=== PATIENT | female | born 1995 | race African-American/Black ===

== ENCOUNTER 2024-07-04 23:34 | Inpatient (IN) | payer OTHER, SELFPAY ==
[2024-07-05] VITALS (186 sets, daily range): BP systolic 62–145; BP diastolic 17–110; PULSE 66–245; RESP 14–20; TEMP 36.7–37.2; O2SAT 79–100; BMI 31.6
--- OUTSIDE RECORDS SUMMARY | 2024-07-05 00:21 | XMS_ITS | Referral Summary ---
Author Organization [facility] Address [address] [place] [phone] Care Team Providers Care Legal Instructor Name Role Phone Audi Mckeon MD Primary Care Provider Allergies No known active allergies Medications No known medications Active Problems No known active problems Social History Tobacco Use Types Packs/Day Years Used Date Smoking Tobacco: Never Smokeless Tobacco: Never Tobacco Cessation:Counseling Given: Not Answered Alcohol Use Standard Drinks/Week Comments No 0 (1 standard drink = 0.6 oz pur e alcohol) Humiliation, Afraid, Rape, and Kick questionnair e Answer Date Recorded Within the last year, have y ou been afraid of your partner or ex-partner? No 01/10/2022 Within the last year, have y ou been humiliated or emotionally abused in other ways by your partner or ex-partner? No Within the last year, have y ou been kicked, hit, slapped, or otherwise physically hurt by your partner or ex-partner? No 01/10/2022 Within the last year, have y ou been raped or forced to have any kind of sexual activity by your partner or ex-partner? 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 Gender Identity Not on file Sexual Orientation Not on file Last Filed Vital Signs Vital Sign Reading Time Taken Comments Blood Pressure 120/86 01/10/2022 2:00 PM CDT patient states she was nervous during first BP Pulse 50 03/01/2012 10:46 AM CREATIVE WRITING PROFESSOR Temperature - - Respiratory Rate - - Oxygen Saturation 99% 03/01/2012 10: 46 AM CREATIVE WRITING PROFESSOR Inhaled Oxygen Concentration - - Weight 78.9 kg (174 lb) 01/10/2022 1:45 PM CDT Height 170.2 cm (5' 7 ) 01/10/2022 1:45 PM CDT Body Mass Index 27.25 01/10/2022 1:45 PM CDT Plan of Treatment Not on file Procedures Procedure Name Priority Date/Time Associated Diagnosis Comments PAP WITH REFLEX TO HIGH RISK HPV Routine 01/10/2022 2:54 PM CDT Screening for STD (sexually transmitted disease) Well woman exam from Last 3 Months or Most Recently Relevant to Health Maintenance Results * Pap with reflex to High Risk HPV (01/10/2022 2:54 PM CDT) CLINICAL INFORMATION: Marie Carlson Comment:None given LMP Marie Carlson Comment:A Previous Pap Marie Carlson Comment:NONE GIVEN Prev. Bx Marie Carlson Comment:NONE GIVEN SOURCE: Marie Carlson Comment:Cervix, Endocervix Pap, specimen adequacy Marie Carlson Comment: Satisfactory for evaluation. Endocervical/transformation zone component present. Age and/or menstrual status not provided HPV interp Marie Carlson Comment:Negative for intraep ithelial lesion or malignancy. COMMENTS Marie Carlson Comment: This Pap test has been evaluated with computer assisted technology. Fire Extinguisher Sprinkler Inspector Anish Velez Comment: MEF, CT(ASCP) CT screening location: [place] [address] [place] [address] Comment Marie Carlson Comment: EXPLANATORY NOTE: The Pap is a screening test for cervical cancer. It is not a diagnostic test and is subject to false negative and false positive results. It is most reliable when a satisfactory sample, regularly obtained, is submitted with relevant clinical findings and history, and when the Pap result is evaluated along with historic and current clinical information. Thin prep 01/10/2022 2:54 PM CDT 01/11/2022 8:35 AM CDT Sumi Guzman SCHOOL LIBRARY MEDIA PROGRAM DIRECTOR LAB CYTOLOGY ORDERABLES [facility] [address] [place] [address] from Last 3 Months or Most Recently Relevant to Health Maintenance Care Teams Legal Instructor Relationship Specialty Start Date End Date Audi Mckeon MD [address] [place] [address] PCP - General 05/12/16
--- OUTSIDE RECORDS SUMMARY | 2024-07-05 00:21 | XMS_ITS | Clinical Summary ---
Author Organization [facility] Address [address] [place] [address] Care Team Providers Care Veterinarian Name Role Phone Unavailable Primary Care Provider Unavailabl e Source Comments [facility],non-owned Affiliates and Associated Physician Practices is amultiple site organization consisting of ambulatory clinics and hospital sitesin [place], [place], [place] and [place]. This disclosure is being madepursuant to the Care Everywhere program and may not contain all information available regarding this patient. Last updated 17[employer] [facility] Allergies No known active allergies Medications * Be aware that medications may not be up to date on this document. Alwaysverify current medications with the patient. Medication Sig Dispensed Refills Start Date End Date Status methylPREDNISolone (MEDROL DOSEPAK) 4 MG tablet Take by mouth as directed 1 Each 05/27/2017 Active Immunizations Name Administration Dates Next Due MENINGOCOCCAL ACWY (MCV4P) VAC IM 11/19/2017 Social History Tobacco Use Types Packs/Day Years Used Date Smoking Tobacco: Never Sex and Gender Information Value Date Recorded Sex Assigned at Not on file Gender Identity Not on file Sexual Orientation Not on file Last Filed Vital Signs Vital Sign Reading Time Taken Comments Blood Pressure 122/72 05/27/2017 3:28 PM OUTDOOR STUDIES DIRECTOR Pulse 51 05/27/2017 3:28 PM OUTDOOR STUDIES DIRECTOR Temperature 36.7 C (98.1 F) 05/27/2017 3:28 PM OUTDOOR STUDIES DIRECTOR Respiratory Rate - - Oxygen Saturation 96% 05/27/2017 3:28 PM OUTDOOR STUDIES DIRECTOR Inhaled Oxygen Concentration - - Weight 77.1 kg (170 lb) 05/27/2017 3:28 PM OUTDOOR STUDIES DIRECTOR Height 170.2 cm (5' 7 ) 05/27/2017 3:28 PM OUTDOOR STUDIES DIRECTOR Body Mass Index 26.63 05/27/2017 3:28 PM OUTDOOR STUDIES DIRECTOR Plan of Treatment Health Maintenance Due Date Last Done Comments PAP SMEAR 1997 HIV SCREENING 2012 HPV VACCINE (1 - 3-dose series) 2012 HEPATITIS C SCREENING 07/31/2015 DTAP/TDAP/TD VACCINES (1 - Tdap) 2016 HEPATITIS B VACCINE (1 of 3 - 19+ 3-dose series) 2016 COVID-19 VACCINE (1 - 2023-2 5 season) 2023 DEPRESSION SCREENING 03/26/2024 INFLUENZA VACCINE (Season Ended) 2024 ZOSTER VACCINE (1 of 2) 08/05/2047 MENINGOCOCCAL GROUPS A/C/Y/W VACCINE Aged Out 11/19/2017 No longer eligible b ased on patient's age to complete this topic HIB VACCINE Aged Out No longer eligi ble based on patient's age to complete this topic MENINGOCOCCAL (Group B) VACC INE SHARED DECISION-MAKING Aged Out No longer eligibl e based on patient's age to complete this topic PNEUMOCOCCAL VACCINE Aged Out No long er eligible based on patient's age to complete this topic
--- OUTSIDE RECORDS SUMMARY | 2024-07-05 00:21 | XMS_ITS | Clinical Summary ---
Author Organization [facility] Address [address] [place] [phone] Care Team Providers Care Benefits Processor Name Role Phone Audi Mckeon MD Primary Care Provider Allergies No known active allergies Medications No known medications Active Problems No known active problems Family History Medical History Relation Name Comments Breast cancer Maternal Grandmother Relation Name Status Comments Maternal Grandmother Social History Tobacco Use Types Packs/Day Years [...] on file Legal Sex Female 1:50 PM BEEF SELECTOR Gender Identity Not on file Sexual Orientation Not on file Obstetrics History Para Term AB IAB SAB Ectopic Multiple Livin g Live Births 0 0 0 0 0 0 0 0 0 0 0 Last Filed Vital Signs Vital Sign Reading Time Taken Comments Blood Pressure 120/86 01/10/2022 2:00 PM CDT patient states she was nervous during first BP Pulse 50 03/01/2012 10:46 AM BEEF SELECTOR Temperature - - Respiratory Rate - - Oxygen Saturation 99% 03/01/2012 10: 46 AM BEEF SELECTOR Inhaled Oxygen Concentration - - Weight 78.9 kg (174 lb) 01/10/2022 1:45 PM CDT Height 170.2 cm (5' 7 ) 01/10/2022 1:45 PM CDT Body Mass Index 27.25 01/10/2022 1:45 PM CDT Plan of Treatment Health Maintenance Due Date Last Done Comments Hepatitis C Screening 1997 DTaP/Tdap/Td Vaccine (7 - Td or Tdap) 11/18/2018 11/18/2008, 07/29/2002, 01/03/1999, Additional history exists Cervical Cancer Screening 01/10/2023 01/10/2022 Depression Screening 01/10/2023 01/10/2022 Regular Well Visit/Exam 18-64 01/10/2023 01/10/2022 Covid-19 Vaccine (3 - 2023-2 5 season) 2023 09/02/2020, 08/12/2020 Influenza Vaccine (#1) 2023 Hepatitis B Screening Completed 08/10/1998 , 02/25/1998, 1997, Additional history exists Pneumococcal vaccine <65 Completed 04/19/2000 Varicella Vaccines Completed 10/24/2007, 08/10/1998 HPV Vaccines Completed 09/02/2014, 12/18/2011 Procedures Procedure Name Priority Date/Time Associated Diagnosis [...] has been evaluated with computer assisted technology. Bulldozer Engineer Que st Ernesto Carlson Comment: MEF, CT(ASCP) CT screening location: [facility] [address] [address] Comment Marie Carlson Comment: EXPLANATORY NOTE: The [...] 2:54 PM CDT 01/11/2022 8:35 AM CDT us Sumi Guzman SAWMILL MOULDER OPERATOR LAB CYTOLOGY ORDERABLES Fin al Result [facility] [place] [address] [place] [address] from Last 3 Months or Most Recently Relevant to Health Maintenance Care Teams Benefits Processor Relationship Specialty Start Date End Date Audi Mckeon MD [address] [place] [address] PCP - General 05/12/16
--- OUTSIDE RECORDS SUMMARY | 2024-07-05 00:22 | XMS_ITS | Clinical Summary ---
Author Organization [facility] Address [address] [facility] [address] Phone Care Team Providers Care Aquatic Physiotherapist Name Role Phone Provider, None Primary Care Provider Unavailabl e Allergies No known active allergies Medications acetaminophen-c odeine (TYLENOL WITH CODEINE) 120-12 MG/5ML Solution Take 10 mL by mouth every 6 hours as needed for Moderate or more severe pain. 120 mL 06/05/2020 Active predniSONE (DELTASONE) 50 MG Tablet Take 1 Tablet by mouth daily. 3 Tablet 06/06/2020 Active HYDROcodone-michael taminophen (NORCO) 5-325 MG Tablet Take 1 Tablet by mouth every 6 hours as needed for Moderate or more severe pain. 15 Tablet 07/23/2020 Active Social History Tobacco Use Types Packs/Day Years Used Date Smoking Tobacco: Never Smokeless Tobacco: Never Alcohol Use Standard Drinks/Week Comments Never 0 (1 standard drink = 0.6 oz pur e alcohol) AUDIT-C Answer Date Recorded Q1: How often do you have a drink containing alc ohol? Never 02/10/2020 Average Number of Drinks Not on file 020 Frequency of Binge Drinking Not on file 01/24 Comments No Sex and Gender Information Value Date Recorded Sex Assigned at Not on file Legal Sex Female 9:59 PM CDT Gender Identity Not on file Sexual Orientation Not on file Last Filed Vital Signs Vital Sign Reading Time Taken Comments Blood Pressure 99/66 07/10/2022 4:43 PM CDT Pulse 52 07/10/2022 4:43 PM CDT Temperature 35.9 C (96.7 F) 07/10/2022 4:43 PM CDT Respiratory Rate 18 07/10/2022 4:43 PM CDT Oxygen Saturation 99% 07/10/2022 4:43 PM CDT Inhaled Oxygen Concentration - - Weight 68 kg (150 lb) 07/10/2022 4:43 PM CDT Height 170.2 cm (5' 7 ) 07/10/2022 4:43 PM CDT Body Mass Index 23.49 07/10/2022 4:43 PM CDT Plan of Treatment Health Maintenance Due Date Last Done Comments Hepatitis C Virus (HCV) Screening 1997 Pap Smear 2018 Influenza Immunization (#1) 2023 SARS-COV-2 Immunization ( season) 2023 09/02/2020, 08/12/2020 Respiratory Syncytial Virus (RSV) Immunization (Adult) (1 - 1-dose 75+ series) 2072 Hepatitis B Immunization Completed 999, 02/25/1998, 1997, Additional history exists Pneumococcal Immunization Combined Aged Out 04/19/2000 No longer eligible based on patient's age to complete this topic DTaP/Tdap/Td Immunization Discontinued 2008, 07/29/2002, 01/03/1999, Additional history exists TdaP Immunization Completed 11/18/2008 Human Papillomavirus (HPV) Immunization Completed 09/02/2014, 12/18/2011 Meningococcal Immunization (ACWY) Completed 11/19/2017, 09/02/2014, 11/18/2008 Rotavirus Immunization Aged Out No lo nger eligible based on patient's age to complete this topic Care Teams Aquatic Physiotherapist Relationship Specialty Start Date End Date Provider, None [place] PCP - General 02/10/20
--- OUTSIDE RECORDS SUMMARY | 2024-07-05 00:22 | XMS_ITS | Data Portability ---
Author Organization [facility] Address [address] [place] [address] [place] [address] Assessment Encounter Date Assessment Date Assessment LastModified by Organization Details LastModified Time 06/17/2024 06/17/2024 Patient is _35__weeks . Discussed plan. [email or web address] Not available 06/17/2024 09:50:57 07/02/2024 07/02/2024 Patient is _38__weeks . Discussed plan. [email or web address] Not available 07/02/2024 18:00:17 Plan of Treatment Reminders Order Date Submit Date Provider Last Modified By Organization Details Last Modified Time Details Appointments OB ROUTINE 2024 08:45A Mike BEDOYA MD Not available Not available Not available NST 2024 09:00A M NST SCHEDULE Not available Not available Not available OB ROUTINE 2024 09:30A Mike Martin CNM Not available Not available Not available INDUCTION 2024 06:00A Mike Martin CNM Not available Not available Not available Lab streptoco ccus group B, culture, unspecifi ed specimen 2024 025 [facility] (Lab), [address], [place], [address], 06/20/2024 15:13:14 Referral None recorded. Procedures None recorded. Surgeries None recorded. Imaging US, obstetric , follow-up 2024 025 [email or web address] [address], [place], [address], 06/26/2024 16:03:42 US, obstetric , follow-up 2024 025 [email or web address] [address], [address], [place], [address], 05/26/2024 22:39:45 Medication Orders None recorded. Patient TargetsNo targets recorded. Patient InstructionsNo instructions recorded. Reason for Referral None Reported. Results Created Date Observation Date Name Description Value Unit Range Abnormal Flag Note LastModifiedBy Organization Detail LastModifiedTime 04/28/1904/28/2024 HBSAG /HCV/ HIV/R ND hepatitis C antibody Non-re active non-re active Antib odies to HCV Not Detec sumi, does not exclu de the possi bilit y of expos ure to HCV. Not Available [facility] (Lab) [address] [facility], [place], [address], 04/30/2024 15:38:24 04/28/19 25 04/28/2024 HBSAG /HCV/ HIV/R ND hepatitis B surface antigen Non-re active non-re active This assay was perfo rmed using [employer] ratio n reage nts and test kits. Value s obtai brittany with other assay metho ds or kits canno t be used inter estrada eably . Not Available [facility] (Lab) [address] [facility], [place], [address], 04/30/2024 15:38:24 04/28/19 25 04/28/2024 HBSAG /HCV/ HIV/R ND HIV antigen/anti body Nonrea ctive nonrea ctive HIV-1 antig en and HIV-1 /HIV- 2 antib odies were not detec sumi. No labor atory evide nce of HIV infec tion. Not Available [facility] (Lab) [address] [facility], [place], [address], 04/30/2024 15:38:24 04/28/19 25 04/28/2024 HBSAG /HCV/ HIV/R ND RPR screen Reacti ve nonrea ctive abnormal A react gayatri RPR resul t alone does not confi rm the prese nce of anti- Trepo nemal antib odies and shoul d be inter prete d with cauti on. Speci mens with a react gayatri RPR that are not confi rmed in-ho use by Syphi lis IgG antib candelaria testi ng will be sent out to a refer ence regino nino for confi rmati on. Not Available [facility] (Lab) [address] [facility], [place], [address], 04/30/2024 15:38:24 04/28/19 25 04/28/2024 HBSAG /HCV/ HIV/R ND RPR titer 1:16 . none high Not Available [facility] (Lab) [address] [facility], [place], [address], 04/30/2024 15:38:24 04/28/19 25 04/28/2024 SYPHI LIS ANTIB CANDELARIA, TREPO NEMA PALLI DUM PARTI DEBBY AGGLU TINAT ION, SERUM syphilis Ab by TP-Pa, S Positi ve negati ve abnormal Resul t sugge sts infec tion with T. palli dum at some time in the past, but does not disti nguis h betwe en treat ed and untre ated syphi lis as trepo nemal antib odies can remai n eleva sumi despi te prope r treat ment. RPR testi ng is recom roddy d to disti nguis h betwe en treat ed and untre ated syphi lis. For addit ional infor natividad n on inter preta tion of the syphi lis rever se algor ithm and resul ts, see: https :[email or web address] w.[facility] / it-mm files /Syph ilis_ Serol ogy_A onesimo thm.p df ----- ----- ----- ----A DDITI ONAL INFOR NATIVIDAD N---- ----- ----- ----- This test is inten ded to be used as a confi rmato ry test on sampl es that have been teste d by [facility] er syphi lis test. Test Perfo rmed by: [facility] [place] [address], [place] [address] Lab Direc tor: Desi Brown nn Ph.D. ; CLIA# [id number] Not Available [facility] (Lab) [address] [facility], [place], [address], 04/30/2024 15:38:24 06/18/19 25 06/17/2024 CULTU RE: GROUP B STREP SCREE N, REFLE X SUSCE PTIBI LITY result report SEE RESULT S BELOW Test: Cultu re: Group B Strep , Refle x Susce ptibi lity ([facility]/ [facility]/K H/VWH ) Speci men Sourc e: Vagin a/Rec dionicio Speci men Type: Vagin al/Re ctal Speci men Date: 2024 0852 Resul t Date: 2024 1410 Resul t Statu s: Final resul t Abnor mal: No Resul ting Lab: [facility] [address] [facility] [address] Tel: CULTU RE ----- ----- ----- --- No Group B strep isola sumi at 2 days (jorge ctive broth enhan cemen t) Not Available [facility] (Lab) [address] [facility], [place], [address], 06/20/2024 15:13:14 04/28/1904/28/2024 US, obste tric, follo w-up No observ ation record ed. [email or web address] [place] [address], [place], [address], 04/28/2024 16:26:42 04/28/19 25 04/28/2024 US, obste tric, follo w-up No observ ation record ed. [email or web address] [address], [place], [address], 04/28/2024 23:27:57 05/27/19 25 05/26/2024 US, obste tric, follo w-up No observ ation record ed. [email or web address] [facility] [address], [place], [address], 05/26/2024 17:23:17 05/27/19 25 05/26/2024 US, obste tric, follo w-up No observ ation record ed. [email or web address] [address], [place], [address], 05/26/2024 21:46:35 06/26/19 25 06/25/2024 US, obste tric, follo w-up No observ ation record ed. [email or web address] [facility] [address], [place], [address], 06/25/2024 18:29:29 06/26/19 25 06/25/2024 US, obste tric, follo w-up No observ ation record ed. [email or web address] [address], [place], [address], 06/26/2024 16:32:54 Result Notes None recorded. Problems Name Problem SNOMED Code Status Onset Date Resolution Date Notes Provider Name and Address Organization Details Recorded Time 04668904 Active 2023 Afsaneh lópez, [facility] 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 Informati on sent to [facility]. ELISABETH HART MD [address], [place], [address], [facility] 5 14:09:03 Problem Notes None recorded. Procedures Surgical History Date Name Laterality Status Provider Name and Address Organization Details Recorded Time 10/24/2022 Date of Last Pap Smear completed Lissy Salcido [facility] 01/30/2024 15:08:31 Imaging Results Imaging Date Name Status LastModified by Organiz ation Details LastModified Time 04/28/2024 US, obstetric, follow-up completed [email or web address] [facility] [address], [place], [address], 04/28/2024 16:26:42 04/28/2024 US, obstetric, follow-up completed [email or web address] [address], [place], [address], 04/28/2024 23:27:57 05/26/2024 US, obstetric, follow-up completed [email or web address] [facility] [address], [place], [address], 05/26/2024 17:23:17 05/26/2024 US, obstetric, follow-up completed [email or web address] [address], [place], [address], 05/26/2024 21:46:35 06/25/2024 US, obstetric, follow-up completed [email or web address] [facility] [address], [place], [address], 06/25/2024 18:29:29 06/25/2024 US, obstetric, follow-up completed [address], [place], [address], 06/26/2024 16:32:54 Procedure Notes None recorded. Medical Equipment None Reported. Allergies No known drug allergies Medications Name Sig Start Date Stop Date Status Note LastModified by Organization Details LastModified Time Bicillin L-A 2,400,000 unit/4 mL intramuscul ar syringe 2023 active Not Available Not Available Not Avai lable ondansetron 4 mg disintegrat ing tablet DISSOLVE 2 TABLETS ON THE TONGUE TWICE DAILY 06/17 completed Not Available Not Available Not Available Vitals Date Recorded Body height Body mass index (BMI) Body weight Systolic blood pressure Diastolic blood pressure Provider Name and Address Organization Details Last Updated DateTime 05/26/2024 170.18 cm 30.1 kg/m2 94255.74 g 118 mm[Hg] 79 mm[Hg] Lissy Salcido [facility] 5 12:15:24 Date Recorded Body weight Body mass index (BMI) Body height Systolic blood pressure Diastolic blood pressure Provider Name and Address Organization Details Last Updated DateTime 06/17/2024 82614.88 163 g 31.2 kg/m2 170.18 cm 114 mm[Hg] 76 mm[Hg] Afsaneh Waters [facility] 5 09:41:25 Date Recorded Body height Body mass index (BMI) Body weight Systolic blood pressure Diastolic blood pressure Provider Name and Address Organization Details Last Updated DateTime 06/25/2024 170.18 cm 31.6 kg/m2 13252.66 g 114 mm[Hg] 75 mm[Hg] JUAN J Valerio [facility] 5 16:24:25 Date Recorded Body height Body mass index (BMI) Body weight Systolic blood pressure Diastolic blood pressure Provider Name and Address Organization Details Last Updated DateTime 07/02/2024 170.18 cm 32.1 kg/m2 25764.44 g 113 mm[Hg] 74 mm[Hg] Afsaneh Waters [facility] 5 17:37:21 Social History Question Answer Notes LastModified by Organizat ion Details LastModified Time Tobacco Smoking Status Never Smoker Afsaneh Waters null, [facility] 01/04/2024 15:18:12 Do You Have An Advance Directive? No [email or web address] Information not available 06/17/2024 What Is Your Level Of Alcohol Consumption? None [email or web address] Information not available 12/19/2023 If You Are , What Was Your Level Of Alcohol Consumption Prior To ? Occasional [email or web address] Information not available 01/04/2024 How Many Years Have You Consumed Alcohol? 5 [email or web address] Information not available 01/04/2024 Are You Blind Or Do You Have Difficulty Seeing? No [email or web address] Information not available 12/19/2023 What Is Your Level Of Caffeine Consumption? None [email or web address] Information not available 07/02/2024 How Much Tobacco Do You Chew? None [email or web address] Information not available 12/19/2023 In The 14 Days Before Symptom Onset, Have You Had Close Contact With A Laboratory-confir med COVID-19 While That Case Was Ill? No [email or web address] Information not available 12/19/2023 In The 14 Days Before Symptom Onset, Have You Had Close Contact With A Person Who Is Under Investigation For COVID-19 While That Person Was Ill? No [email or web address] Information not available 12/19/2023 Have You Been To An Area Known To Be High Risk For COVID-19? No Information not available 12/19/2023 Are You Deaf Or Do You Have Serious Difficulty Hearing? No [email or web address] Information not available 12/19/2023 What Type Of Diet Are You Following? REGULAR [email or web address] Information not available 12/19/2023 What Is The Highest Grade Or Level Of School You Have Completed Or The Highest Degree You Have Received? 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 No Information not available 12/19/2023 Do You Use Protection During Sex? No [email or web address] Information not available 07/02/2024 Do You Use Your Seat Belt Or Car Seat Routinely? Yes Information not available 12/19/2023 Do You Have Smoke And Carbon Monoxide Detectors In Your Home? No [email or web address] Information not available 12/19/2023 How Much Tobacco Do You Smoke? No [email or web address] Information not available 12/19/2023 Do You Feel Stressed (tense, Restless, Nervous, Or Anxious, Or Unable To Sleep At Night)? [id number] [email or web address] Information not available 12/19/2023 Do You Use Any Illicit Or Recreational Drugs? No [email or web address] Information not available 12/19/2023 Do You Use Sunscreen Routinely? No [email or web address] Information not available 12/19/2023 Has Tobacco Cessation Counseling Been Provided? No [email or web address] Information not available 01/04/2024 Have You Used IV Drugs? No [email or web address] Information not available 12/19/2023 Do You Or Have You Ever Used Any Other Forms Of Tobacco Or Nicotine? No [email or web address] Information not available 01/04/2024 Sex: Unknown Functional Status Question Answer Note LastModified by Organizat ion Details LastModified Time Do you have difficulty walking or climbing stairs? No Information not available 01/04/2024 Are you able to walk? YESWOREST [email or web address] Information not available 04/02/2024 Are you able to care for yourself? Yes [email or web address] Information not available 01/04/2024 Do you have difficulty dressing or bathing? No [email or web address] Information not available 01/04/2024 What is your exercise level? Occasional [email or web address] Information not available 01/30/2024 Mental Status None recorded. Family History Relationship Description Onset Age of this Age Resolved Age Notes LastModified by Organization Details LastModified Time Unspecified Relation Family history unknown [email or web address] Not available 2023 12:19:10 Medical History Condition Response Allergies (Food, seasonal, environmental ) N Other N Breast Cancer N Drug/Latex Allergies/Reactions N Blood Transfusion N Dermatologic Disorders N Lung Disease N Defects or Inherited Disease N Breast Problem N Gestational Diabetes N Hematologic disorders N Anesthesia Complications N History of STI N Deep Vein Thrombosis N Polycystic ovary syndrome N Anxiety Disorder N Autoimmune disease N Arthritis N Infertility N Polyps N Acid Reflux (GERD) N History of abnormal pap N Cancer N Stroke N Varicosities N Neurologic/Epilepsy N Endometriosis N High Cholesterol N Headaches N Fibromyalgia N Kidney Disease N Heart Problems N Kidney or Bladder Problems N Thyroid Problems N GI Problems N Eating Disorder N Anemia N Art (IVF or FET) N Psychiatric Illness N Ovarian Cancer N Diabetes N Pulmonary (TB, Asthma) N Hepatitis/Liver Disease N No Past Medical History Y Eczema N Urinary Tract Infection N Abuse/Domestic Violence N Asthma N Trauma/Violence N Depression/ depression N Heart Disease N Pre-Eclampsia N Hypertension N Osteoporosis N Thrombophilias N Gynecological History Statement/Question Response Abnormal Pap N Date of Last Mammogram Date of LMP 10/10/2023 On BCP's at Conception? N N Was last menstrual period normal Y STIs/STDs N HPV Vaccine N Duration of Flow (days) 5 Current Control Method Date of Last Colonoscopy Frequency of Cycle (Q days) 28 Sexually Active? Y BCPs Date of DEXA bone scan Age of first menstrual cycle 14 Date of Last Pap Smear 10/24/2022 Sexual Problems? N LMP Unknown N Obstetrics History GPAL:G 1 P 0 0 0 0 Type Value Living 0 Total 1 Past Encounters Encounter ID Performer Location Encounter Start Date Encounter Closed Date Diagnosis/Indication Diagnosis SNOMED-CT Code Diagnosis ICD10 Code Diagnosis Note [id number] [facility] [address],[place] [address] 12/19/2023 11:41:32 12/19/2023 12:24:38 [id number] ELISABETH HART MD [facility] [address],[place] [address] 12/19/2023 11:48:31 12/19/2023 15:00:12 Nausea and vomiting 77828945 R11.2 - will trial zofran PRN test positive 018573264 Z32.01 1. Exam today within normal limits.2. Ultrasound today confirms GA and viability. EDC . GC/Clamydi a testing done: will f/u as indicated. 4. ACOG guidelines and plan of care for reviewed with patient. All questions answered.5 . Return to office at 12 weeks for new OB visit6. Will need new OB labs at next visit.7. Genetic screening: desires. [id number] [facility] [address],[place] [address] 01/01/2024 09:34:21 01/01/2024 10:02:53 screening 759506727 Z36.82 Z3A.11 [id number] Ne Martin CNM [facility] [address],[place] [address] 01/04/2024 15:02:54 01/04/2024 16:00:10 Gestation period, 12 weeks 61492937 Z3A.12 Routine an tenatal care 467992482 Z34.90 [id number] ELISABETH HART MD [facility] [address],[place] [address] 01/30/2024 14:54:15 01/30/2024 16:06:26 Latent syphilis 445480240 A53.0 - s/p PCN x2, next appointmen t 02/04 Gestation period, 16 weeks 49947988 Z3A.16 [id number] [facility] [address],[place] [address] 02/26/2024 14:45:12 02/26/2024 16:21:46 screening for malformation 517474211 Z36.3 Z3A.19 [id number] ELISABETH HART MD [facility] [address],[place] [address] 02/26/2024 14:46:52 02/26/2024 16:47:33 Excessive growth affecting management of mother 59349669 O36.60X0 - 93% at 20 weeks- repeat at 24 weeks Gestation period, 19 weeks 88979627 Z3A.19 - continue PNV Latent syphilis 19301275 0 A53.0 - s/p PCN x3, repeat with GCT [id number] [facility] [address],[place] [address] 04/28/2024 11:20:59 04/28/2024 12:12:44 Pre-existing maternal disease complicating 6268738790 6106 O99.891 Z3A.28 [id number] ELISABETH HART MD [facility] [address],[place] [address] 04/02/2024 13:55:06 04/09/2024 03:22:23 Latent syphilis 746908466 A53.0 - s/p PCN x3, repeat with GCT Gestation period, 25 weeks 44186661 Z3A.25 - continue PNV [id number] ELISABETH HART MD [facility] [address],[place] [address] 04/28/2024 11:29:08 04/28/2024 12:42:04 Venereal disease screening 771812064 Z11.3 - partner seropositi ve for HSV1 after questionab le lesion vs folliculit is- discussed no indication for blood testing for HSV, patient to call if lesions present Latent syphilis 05036440 0 A53.0 - s/p PCN x3- RPR titer 1:64 down to 1:32 at 24 week visit Transverse lie 82603109 O32.2XX9 - repeat at 32 weeks Gestation period, 28 weeks 29597106 Z3A.28 - continue PNV [id number] ELISABETH HART MD [facility] [address],[place] [address] 05/12/2024 09:57:52 05/12/2024 14:23:13 Latent syphilis 033273607 A53.0 - s/p PCN x3- RPR titer 1:64 down to 1:32 at 24 week visit further downtrend to 1:16 at 28 week visit Transverse lie 81555070 O32.2XX9 - repeat at 32 weeks Gestation period, 30 weeks 49338620 Z3A.30 - continue PNV [id number] Rose Foster [facility] [address],[place] [address] 05/26/2024 11:28:56 05/26/2024 12:16:10 Malpresentation of fetus 47372497 O32.9XX0 Z3A.32 [id number] ELISABETH HART MD [facility] [address],[place] [address] 05/26/2024 11:29:19 05/26/2024 12:45:19 Latent syphilis 418283164 A53.0 - s/p PCN x3- RPR titer 1:64 down to 1:32 at 24 week visit further downtrend to 1:16 at 28 week visit Gestation period, 32 weeks 7391599 Z3A.32 - continue PNV- discussed preadmissi on [id number] Ne Martin CNM [facility] [address] [place] [address] 06/17/2024 09:35:57 06/17/2024 10:00:21 screening 743799649 Z36.85 Gestation period, 35 weeks 15649237 Z3A.35 continue vitamin [id number] Kylie Gross [facility] [address],[place] [address] 06/25/2024 15:32:20 06/25/2024 16:23:57 Pre-existing maternal disease complicating 1647203791 6106 O99.891 Z03.74 Z3A.37 [id number] ELISABETH HART MD [facility] [address] [address] 06/25/2024 15:33:29 06/25/2024 17:09:28 Latent syphilis 976902116 A53.0 - s/p PCN x3- RPR titer 1:64 down to 1:32 at 24 week visit further downtrend to 1:16 at 28 week visit Gestation period, 37 weeks 68849023 Z3A.37 [id number] Ne Martin CNM [facility] [address],[facility] [place] [address] 07/02/2024 16:56:53 07/03/2024 06:53:07 Health Concerns Section Related Observation LastModified by Organization Detai ls LastModified Time None Recorded Concern Status LastModified by Organization Details LastModified Time None Recorded Advance Directives Directive N: Payers Encounter Date Sequence Insurance Name Policy Number Policy Cohn Covered Member ID Cohn Member ID Guarantor Name 05/26/2024 1 [facility] ON OR AFTER 09/23/20 (MEDICAID REPLACEMENT - HMO) Tara Michel [id number] Tara Michel 06/17/2024 1 [facility] ON OR AFTER 09/23/20 (MEDICAID REPLACEMENT - HMO) Tara Michel [id number] Tara Michel 06/25/2024 1 [facility] ON OR AFTER 09/23/20 (MEDICAID REPLACEMENT - HMO) Tara Michel [id number] Tara Michel 06/25/2024 1 [facility] ON OR AFTER 09/23/20 (MEDICAID REPLACEMENT - HMO) Tara Michel [id number] Tara Michel 07/02/2024 1 [facility] ON OR AFTER 09/23/20 (MEDICAID REPLACEMENT - HMO) Tara Michel [id number] Tara Michel OBGyn Episode Ob Episode Information Episode Created Date Number of Fetuses Patient Bloodtype Patient rh Status Prepregnancy Weight lbs Domestic Partner Domestic Partner Phone Father Name Dial Mounter Status 01/04/20 24 1 O Positive Daniel Morfin OPEN Fetus Data First Name Last Name Admitted to NICU Weight (g) Sex Living Outcome Pediatric Complications Fetus ID Race Codes Race Delivery Type [id number] Problems Problem Notes Problem Name Start Date End Date Resolution Snomed Code Not e Latent syphilis 01/11/2024 [id number] RPR 1:64 titer decreased to 1:16 titer at 28 weeks; 3rd injection 02/04. Information sent to [facility]. Maximino Calculation Initial Maximino Date Initial Exam Date Initial Exam Provider Initial Ultrasound Date Last Menstrual Period Date Ultra Sound Weeks Gestation 07/16/2024 12/19/2023 12/19/2023 10/10/2023 10 Eighteen To Twenty Week Maximino Update Ultra Sound Date Fundal Height At Umbil Quickening Date Ultra Sound Latest Weeks Gestation Final Maximino Confirmed By Final Maximino Confirmed Date Final Maximino Date Ultra Sound Latest Days Gestation 0 0 Pre- Flowsheet Flowsheet Date 01/04/2024 [place] Score Blood Edema Fundus Height Fundus Units Glucose Ketones Leukocytes Nitrite Labor Signs Protein Cervic Dilation Cervic Effacement Cervic Station neg none none trace Type Weight in lbs Pre/Post Dialysis Refused Weight 173.070966797075 BP Diastolic BP Location Tested BP Systolic BP Type 71 102 Fetus Heart Rate Present Fetus Movement A Yes Comments Patient states that is havin g some cramping and nausea. education and precautions, reviewed US, begin routine care, ok for flu and covid if desires f/u 4 weeks Flowsheet Date 01/30/2024 [place]ley Score Blood Edema Fundus Height Fundus Units Glucose Ketones Leukocytes Nitrite Labor Signs Protein Cervic Dilation Cervic Effacement Cervic Station neg none none trace Type Weight in lbs Pre/Post Dialysis Refused 170.991320174653 BP Diastolic BP Location Tested BP Systolic BP Type 77 L arm 107 sitting Fetus Heart Rate Present Fetus Movement A Yes Comments Doing well, no issues. Start ing to feel flutters. Completed 2nd injection of PCN for latent syphilis. Has next injection scheduled for next week. Discussed anatomy US for next visit. RTC 4 weeks. Flowsheet Date 02/26/2024 [place]ley Score Blood Edema Fundus Height Fundus Units Glucose Ketones Leukocytes Nitrite Labor Signs Protein Cervic Dilation Cervic Effacement Cervic Station Type Weight in lbs Pre/Post Dialysis Refused BP Diastolic BP Location Tested BP Systolic BP Type Fetus Heart Rate Present Fetus Movement Comments Flowsheet Date 02/26/2024 [place]ley Score Blood Edema Fundus Height Fundus Units Glucose Ketones Leukocytes Nitrite Labor Signs Protein Cervic Dilation Cervic Effacement Cervic Station neg none Type Weight in lbs Pre/Post Dialysis Refused Weight 174.814982122510 BP Diastolic BP Location Tested BP Systolic BP Type 77 L arm 113 sitting Fetus Heart Rate Present A Present Fetus Movement A Yes Comments Doing well, good movem ent. No cramping or bleeding. Anatomy complete and normal, EFW 93%. Will do 1h GCT at 24 weeks. Repeat growth US at next visit. RTC 4 weeks. Flowsheet Date 04/02/2024 [place] Score Blood Edema Fundus Height Fundus Units Glucose Ketones Leukocytes Nitrite Labor Signs Protein Cervic Dilation Cervic Effacement Cervic Station neg none Type Weight in lbs Pre/Post Dialysis Refused Weight 184.070912930302 BP Diastolic BP Location Tested BP Systolic BP Type 85 L arm 120 sitting Fetus Heart Rate Present A 140 Fetus Movement A Yes Comments Doing well, good movem ent. No cramping or bleeding. GCT and labs today for macrosomic fetus. Will repeat RPR as well s/p treatment. Repeat growth US next visit to monitor weight. RTC 4 weeks. Flowsheet Date 04/28/2024 Ridley Score Blood Edema Fundus Height Fundus Units Glucose Ketones Leukocytes Nitrite Labor Signs Protein Cervic Dilation Cervic Effacement Cervic Station Type Weight in lbs Pre/Post Dialysis Refused BP Diastolic BP Location Tested BP Systolic BP Type Fetus Heart Rate Present Fetus Movement Comments Flowsheet Date 04/28/2024 Ridley Score Blood Edema Fundus Height Fundus Units Glucose Ketones Leukocytes Nitrite Labor Signs Protein Cervic Dilation Cervic Effacement Cervic Station neg none Type Weight in lbs Pre/Post Dialysis Refused Weight 184.807484732555 BP Diastolic BP Location Tested BP Systolic BP Type 83 L arm 113 sitting Fetus Heart Rate Present A Present Fetus Movement A Yes Comments Good movement. No cram ping or bleeding. Growth US EFW 70%, transverse lie. WIll repeat in 4 weeks. Passed GCT, labs wnl. RPR titer downtrending. Would like repeat STD testing, boyfriend was diagnosed seropositive HSV-1. Discussed do not recommend serum testing for HSV, if patient has outbreak, can come in for swab of lesion. Recommend safe sex or avoidance of physical contact if any lesions present. Patient voices understanding. Discussed Tdap vaccine. RTC 2 weeks. Flowsheet Date 05/12/2024 Ridley Score Blood Edema Fundus Height Fundus Units Glucose Ketones Leukocytes Nitrite Labor Signs Protein Cervic Dilation Cervic Effacement Cervic Station neg none Type Weight in lbs Pre/Post Dialysis Refused 190.624828348820 BP Diastolic BP Location Tested BP Systolic BP Type 76 L arm 106 sitting Fetus Heart Rate Present A 140 Fetus Movement A Yes Comments Patient c/o of Gianfranco Garza . No bleeding. Good movement. STD testing negative at last appointment, RPR titer downtrending as expected. Discussed repeat growth/presentation US for next visit. RTC 2 weeks. Flowsheet Date 05/26/2024 Ridley Score Blood Edema Fundus Height Fundus Units Glucose Ketones Leukocytes Nitrite Labor Signs Protein Cervic Dilation Cervic Effacement Cervic Station Type Weight in lbs Pre/Post Dialysis Refused BP Diastolic BP Location Tested BP Systolic BP Type Fetus Heart Rate Present Fetus Movement Comments Flowsheet Date 05/26/2024 Ridley Score Blood Edema Fundus Height Fundus Units Glucose Ketones Leukocytes Nitrite Labor Signs Protein Cervic Dilation Cervic Effacement Cervic Station neg trace Type Weight in lbs Pre/Post Dialysis Refused Weight 192.542412600246 BP Diastolic BP Location Tested BP Systolic BP Type 79 L arm 118 sitting Fetus Heart Rate Present A Present Fetus Movement A Yes Comments Patient c/o [place] Garza an d slight swelling in feet. Good movement. Had some pink spotting that has resolved. Tdap scheduled. Discussed preadmission. EFW 30%, JINNY wnl. Vertex! Discussed EIL vs spontaneous labor, will discuss further at next visit. RTC 2 weeks. Flowsheet Date 06/17/2024 Ridley Score Blood Edema Fundus Height Fundus Units Glucose Ketones Leukocytes Nitrite Labor Signs Protein Cervic Dilation Cervic Effacement Cervic Station neg none 38 cm 1cm 70% -2 Type Weight in lbs Pre/Post Dialysis Refused 199.238528603692 BP Diastolic BP Location Tested BP Systolic BP Type 76 114 Fetus Heart Rate Present A 146 Present Fetus Movement A Yes Comments Patient is having some pelvi c pain. preadmit on sunday, +FM, precautions and education f/u one week Flowsheet Date 06/25/2024 Ridley Score Blood Edema Fundus Height Fundus Units Glucose Ketones Leukocytes Nitrite Labor Signs Protein Cervic Dilation Cervic Effacement Cervic Station Type Weight in lbs Pre/Post Dialysis Refused BP Diastolic BP Location Tested BP Systolic BP Type Fetus Heart Rate Present Fetus Movement Comments Flowsheet Date 06/25/2024 Ridley Score Blood Edema Fundus Height Fundus Units Glucose Ketones Leukocytes Nitrite Labor Signs Protein Cervic Dilation Cervic Effacement Cervic Station trace Type Weight in lbs Pre/Post Dialysis Refused Weight 202.249892461372 BP Diastolic BP Location Tested BP Systolic BP Type 75 L arm 114 sitting Fetus Heart Rate Present A 131 Fetus Movement A Yes Comments pt has a little swelling in leg and feet. FM great. No cramping or bleeding. Would like to await spontaneous labor. EFW 35%, vertex. Discussed labor precautions. RTC 1 week. Flowsheet Date 07/02/2024 Ridley Score Blood Edema Fundus Height Fundus Units Glucose Ketones Leukocytes Nitrite Labor Signs Protein Cervic Dilation Cervic Effacement Cervic Station neg trace 37 cm Type Weight in lbs Pre/Post Dialysis Refused Weight 205.758153336834 BP Diastolic BP Location Tested BP Systolic BP Type 74 113 Fetus Heart Rate Present A 132 Present Fetus Movement A Yes Comments Patient is having some contr actions and swelling. reviewed precautions, consider IOL pt desired 07/18 will talk to fob and let us know if she wants to schedule, +FM, precautions and education Menstrual History Last Menstrual Date Menses Monthly On Bcp Conception Prior Menses Frequency Hcg Plus Date Menarche Onset Age 0710/10/2023 Delivery Information Delivery Date Delivery Type Labor Anesthesia Weeks Gestation Incision Type Labor Labor Length Hrs Delivered By Post Complications Tubal Sterilization Discharge Date Comments Discharge Information Feeding Method Contraceptive Method Maternal HG B and HCT Levels
--- NOTE | 2024-07-05 00:29 | LDADM ---
This patient, Tara Michel, was admitted to Labor/Delivery/Recovery 105 on 07/04/24 at 23:34. Plans for labor, pain management and were discussed with patient. Patient/family oriented to hospital policies and general routines including ID bracelet, bed and alarms, visiting hours, pain management, procedures, bathroom and other care routines, personal items, smoking policy, room service/diet and guest tray routines, security routines, and visiting hours. Patient/Family are encouraged to report perceived risks to care and to ask questions if they do not understand what they are told or what they should do. See OBIX for further documentation.
[2024-07-05 00:32] LABS: Basophils Percent Auto 0.2 % (0.2-1.2); Eosinophils Absolute Auto 0.1 K/mm3 (0-0.3); Eosinophils Percent Auto 0.5 % (0-4.4); Hematocrit 34.7 % (37.0-47.0); Hemoglobin 11.2 g/dL (12.0-15.0); Immature Granulocyte Percent A 0.7 % (0-0.5); Lymphocytes Absolute Auto 2.84 K/mm3 (0.9-3.2); Lymphocytes Percent Auto 18.6 % (18.3-44.2); Mean Corpuscular HGB Conc 32.3 g/dl (32-36); Mean Corpuscular Hemoglobin 27.7 pg (26-34); Mean Corpuscular Volume 85.7 fl (80-100); Mean Platelet Volume 11.5 fl (7.4-10.4); Monocytes Absolute Auto 0.9 K/mm3 (0.1-0.6); Monocytes Percent Auto 5.8 % (2.6-8.5); Neutrophils Absolute Auto 11.4 K/mm3 (1.3-6.7); Neutrophils Percent Auto 74.2 % (45.5-73.1); Platelet Count Result 224 k/mm3 (150-375); Red Blood Count 4.05 M/mm3 (4.2-5.4); Red Cell Distribution Width 14.6 % (11.5-14.5); White Blood Count 15.3 K/mm3 (4.5-10.0)
[2024-07-05 01:15] LABS: Syphilis IgG/IgM Antibody Reactive (Negative)
[2024-07-05 01:26] LABS: HIV 1/2 Ab P24 Ag Result Negative (Negative)
[2024-07-05] MEDS: LACTATED RINGERS 1,000 ML 125 ML IV CONT ×2 (02:03→03:04)
--- NOTE | 2024-07-05 02:22 | P.PNAN_ITS ---
Anes - Eval Pre Procedure Procedure: Labor Epidural Date/Time: 07/05/24 02:22 Surgeon: Vitor Preop Diagnosis: Labor Pain Pre Op Diagnosis: Contractions Patient Data Age: 28 Gender: F Height: 1.7 m Weight: 91.8 kg Last Vital Signs Pulse 119 H 07/05/24 02:17 BP 104/78 07/05/24 02:17 Pulse Ox 100 07/05/24 02:17 O2 Del Method Room Air 07/05/24 00:26 Allergies Allergy/AdvReac Type Severity Reaction Status Date / Time No Known Allergies Allergy Verified 06/21/24 13:59 Home Medications ?Medication ?Instructions ?Recorded ?Confirmed ?Type vit no.95-ferrous 1 tablet PO DAILY 06/21/24 06/21/24 History fumarate 28 mg-folic acid 800 mcg tablet () Laboratory Tests 07/05/24 07/05/24 00:25 00:26 WBC 15.3 H K/mm3 (4.5-10.0) RBC 4.05 L M/mm3 (4.2-5.4) Hgb 11.2 L g/dL (12.0-15.0) Hct 34.7 L % (37.0-47.0) MCV 85.7 fl (80-100) MCH 27.7 pg (26-34) MCHC 32.3 g/dl (32-36) RDW 14.6 H % (11.5-14.5) Plt Count 224 k/mm3 (150-375) MPV 11.5 H fl (7.4-10.4) Immature Gran % (Auto) 0.7 H % (0-0.5) Neut % (Auto) 74.2 H % (45.5-73.1) Lymph % (Auto) 18.6 % (18.3-44.2) [place] % (Auto) 5.8 % (2.6-8.5) Eos % (Auto) 0.5 % (0-4.4) Baso % (Auto) 0.2 % (0.2-1.2) Lymph # (Auto) 2.84 K/mm3 (0.9-3.2) [place] # (Auto) 0.9 H K/mm3 (0.1-0.6) Eos # (Auto) 0.1 K/mm3 (0-0.3) Baso # (Auto) 0.0 K/mm3 (0.0-0.1) Abs Immat Gran (auto) 0.10 H K/mm3 (0.00-0.031) Absolute Neuts (auto) 11.4 H K/mm3 (1.3-6.7) Absolute Nucleated RBC 0.000 K/mm3 (0.0-0.012) Nucleated RBC % 0.0 % (0.0-0.2) Syphilis IgG/IgM Ab Reactive A (Negative) RPR Titer Add Testing Pending RPR w/Rflx to Titer Pending T.pallidum Ab (FTA-ABS) Pending HIV 1&2 Ab/P24 Ag 4thGn Negative (Negative) Blood Type O Positive Antibody Screen Negative : gestational age (, SANGEETHA 07/16/24) HCG: positive Patient hx anesthesia problems: none Family hx anesthesia problems: none Results Review: All pre-operative results and documents have been reviewed as part of the pre- operative evaluation. [facility] Family History Family History Other Unknown family medical history Social History Social History Smoking status: Former smoker Second hand tobacco smoke exposure: No Substance use: never Do You Feel Safe in your Home?: Yes Lack of Transportation: No Lack of Food: Never True Current Housing: I Have Housing Concerned About Future Housing: No Difficulty Paying Gas/Electric Bills: No Difficulty Paying for Meds: No Currently Unemployed: No Education: High School Diploma/GED Difficulty w/ Childcare or Family Care: No Spiritual care concerns: No Exam Day of Procedure 07/05/24 02:22 Patient weight: overweight Heart: regular rate and rhythm Lungs: normal air movement Airway: Mallampati scale class II Neurological: alert and oriented
[2024-07-05] MEDS: PHENYLEPHRINE 1,000 MCG/10 ML SYRINGE 100 MCG IV PUSH ×3 (03:09→05:45)
[2024-07-05] MEDS: ONDANSETRON INJ 4 MG/2 ML VIAL IV PUSH (05:32)
--- NOTE | 2024-07-05 08:19 | WPDHPUPDATE1 ---
History and Physical Update Update Date/Time: 07/05/24 08:19 28-year-old term primary now in the 2nd stage of labor. Artificial rupture membranes was performed. Clear fluid. Reassuring status. History and Physical has been reviewed, including an updated exam of the patient. There are NO changes in the patient's condition. Risks, benefits, and alternatives have been discussed and questions answered. Patient agrees to proceed with procedure.
--- NOTE | 2024-07-05 10:52 | PM.OBPRVD ---
OB - Vaginal Delivery Note Procedure Delivery date: 07/05/24 Delivery augmentation: Rupture of Membranes Delivery monitor: External FHT and External Uterine Episiotomy description: None Laceration Description: Periurethral Delivery repair: vicryl Quantitative Blood Loss (ml): 124 Anesthesia type: Epidural Disposition: Floor Complications: No immediate complications
[2024-07-05] MEDS: OXYTOCIN 30 UNITS/NS 500 ML 30 UNITS/500 ML BAG 999 UNITS IV CONT (11:00)
[2024-07-05] MEDS: OXYTOCIN 30 UNITS/NS 500 ML 30 UNITS/500 ML BAG 125 UNITS IV CONT (11:44)
--- NOTE | 2024-07-05 14:37 | PC.NURSE ---
Patient transferred to post room #290 via wheelchair. Support person present. Oriented to unit, room, information board, rooming in, admission packet and security measures. Patient verbalizes understanding.
[2024-07-05] MEDS: PENICILLIN G BENZATHINE 2,400,000 UNITS/4 ML SYRINGE 2400000 UNITS IM (17:11)
[2024-07-05] MEDS: WITCH HAZEL 40 PADS 1 PAD TOPICAL (17:16)
[2024-07-05] MEDS: BENZOCAINE 20% AER SPR (*SP) 56 GM CAN 1 SPRAY TOPICAL (17:17)
--- NOTE | 2024-07-05 17:30 | PC.NURSE ---
Introductions were made, then consulted with patient to assess needs related to . Mother led the conversation with her?plans to feed?her infant and the?experience so far. Encouraged understanding of the benefits of skin to skin, stimulating with massage touch, changing positions to encourage wakefulness, how to watch for early feeding cues, responsive feeding, feeding on demand (aiming for 8-12 times in 24 hours, about every 2-3 hours), milk production, building/maintaining a milk supply, duration of feeding, signs of adequate intake/output and how to record on the feeding sheet. Mother works well with her infant with encouragement and education. Reviewed positioning and ear, shoulder, hip alignment, supporting the breast to facilitate a deep latch, asymmetrical latch (off-center), leading with the chin with a big, open, wide gape and body close to mother. latched optimally to the [right] breast in [football] position. Education given to the mother of how to visualize the suckling, swallows and how to listen for drinking at the breast (the ka sound). Infant was [able] to maintain latch without pain to mother protecting the nipple with optimal positioning and latching. Reviewed comfort measures of healing with a warm, wet washcloth to rinse breast, then leave open to air-dry, good handwashing when or touching the breast/nipples to prevent infection. Mother voiced understanding of skin to skin, stimulating with massage touch, responsive feedings, hand expressed colostrum, talking to to encourage if it has been 2 -2.5 hours since the start of the last , to call if infant does not latch, or if there is discomfort with .Parents voiced understanding of information, demonstrated learning and will call if there is a request for assistance. Reported to the Primary RN.
[2024-07-06] MEDS: ACETAMINOPHEN 325 MG TABLET 650 MG PO ×2 (02:17→18:36)
[2024-07-06] MEDS: IBUPROFEN 600 MG TABLET PO ×3 (02:17→18:36)
[2024-07-06 05:08] LABS: Hematocrit 32.7 % (37.0-47.0); Hemoglobin 9.9 g/dL (12.0-15.0)
[2024-07-06 05:13] VITALS: BP 105/52; PULSE 71; RESP 14; TEMP 36.8; O2SAT 100
[2024-07-06 08:00] VITALS: BP 115/82; PULSE 62; RESP 18; TEMP 36.4; O2SAT 100
[2024-07-06] MEDS: DOCUSATE SODIUM 100 MG CAPSULE PO ×2 (08:29→16:19)
[2024-07-06] MEDS: MULTIVIT/MIN/PREN/FOL AC/IRON TABLET 1 TAB PO (08:29)
[2024-07-06] MEDS: POLYSACCHARIDE IRON COMPLEX 150 MG CAPSULE PO ×2 (08:30→16:18)
--- NOTE | 2024-07-06 08:37 | P.PNOB_ITS ---
OB - PN: Subj Subjective Date/time seen: 07/06/24 08:37 Patient comments: no complaints, pain well controlled, incisional pain, tolerating diet and flatus present OB - PN: Obj Data Labs 07/06/24 05:00 Labs: Laboratory Results - last 24 hr 07/06/24 05:00 Hgb 9.9 L Hct 32.7 L OB - PN A/P Plan day: 1 Plan: routine care Comments: No problems, routine care Time Spent With Patient Time: Total time spent is greater than 50% in coordination of care (as documented) at patient's floor/unit and/or counseling patient: Exam 2 Const: General: comfortable, no acute distress and alert Resp: Effort & Inspection: normal respiratory effort Auscultation: no crackles, no rales and no rhonchi Cardio: Rate: regular rate Heart sounds: no click, no murmurs and no rubs GI: Inspection: non-distended GI Palp: No Tenderness to palpation present (GI) Auscultation: normal bowel sounds Other: Incision - CDI Extrem: General: normal to inspection, no pedal edema and no calf tenderness
--- NOTE | 2024-07-06 16:03 | WPDANLDPN2 ---
Anes-Prog Note L&D Date/Time: 07/06/24 16:03 Comfortable throughout: labor and delivery Neuraxial method: epidural Epidural/Spinal procedure site: clean & non-tender Neuro status: Neuro function grossly intact. Cardiovascular status: normal Respiratory status: normal Airway patency: baseline Mental status: baseline Post-Op hydration status: normal Vital Signs: Last Vital Signs Temp 36.4 C 07/06/24 08:00 Pulse 62 07/06/24 08:00 Resp 18 07/06/24 08:00 BP 115/82 07/06/24 08:00 Pulse Ox 100 07/06/24 08:00 O2 Del Method Room Air 07/05/24 00:26 Pain score (VAS): 3 I/O: Intake & Output 07/06/24 07/06/24 07/06/24 07:59 15:59 23:59 Intake Total 540 Balance 540 Post-procedural complaints: none Patient feedback: Patient satisfied with anesthetic care.
[2024-07-06 20:45] VITALS: BP 124/77; PULSE 64; RESP 16; TEMP 36.8; O2SAT 100
[2024-07-06 23:45] VITALS: BP 116/81; PULSE 72; RESP 14; TEMP 37.1; O2SAT 100
[2024-07-07] MEDS: ACETAMINOPHEN 325 MG TABLET 650 MG PO ×2 (00:29→09:57)
[2024-07-07] MEDS: IBUPROFEN 600 MG TABLET PO ×2 (00:30→09:55)
[2024-07-07 08:00] VITALS: PULSE 64; RESP 18; O2SAT 100
--- NOTE | 2024-07-07 08:17 | P.PNOB_ITS ---
OB - PN: Subj Subjective Date/time seen: 07/07/24 08:17 Patient comments: no complaints, pain well controlled and tolerating diet OB - PN: Obj Data Labs 07/06/24 05:00 OB - PN A/P Plan day: 2 Plan: routine care and discharge home Time Spent With Patient Time: Total time spent is greater than 50% in coordination of care (as documented) at patient's floor/unit and/or counseling patient: Exam 2 Const: General: comfortable and no acute distress Resp: Effort & Inspection: normal respiratory effort Auscultation: no rales, no rhonchi and no wheezes Cardio: Rate: regular rate Heart sounds: no click, no murmurs and no rubs GI: GI Palp: Yes Soft to palpation and No Tenderness to palpation present (GI) Auscultation: normal bowel sounds Extrem: General: normal to inspection, no pedal edema and no calf tenderness
--- NOTE | 2024-07-07 08:18 | PM.OBDSVD ---
DS: Admitting Diagnosis Discharge Date 07/07/2024 Admitting Diagnosis Term DS: Discharge Diagnosis Discharge Diagnosis (1) Term delivered: Code(s): O80 - Encounter for full-term uncomplicated delivery Status: Acute OB - DS: Summary OB Procedures : None OB Procedures Intrapartum: Spontaneous Vag Delivery OB Procedures: : None Peripartum Data Laceration Description: Periurethral Episiotomy description: None Time Spent with Patient Time attestation: Total time spent providing and/or coordinating discharge services: Discharge Plan Discharge Discharging Clinician: Benji Benson Patient Disposition: Home Activity: pelvic rest Diet: regular Patient Instructions: Antibiotic Form Patient Language: Estonian Stand Alone Forms: General Discharge Information Follow-up/Referrals: Benji Benson MD [Physician] - Discharge Medications: Continued PNV cmb#95-ferrous fumarate-FA [] 28 mg iron- 800 mcg tablet 1 tablet PO DAILY Date of admission: 07/04/24 23:34 Primary Care Provider: PHYSICIAN,SANDBLAST OR SHOTBLAST EQUIPMENT TENDER Admitting Provider: Maik Adler Attending physician on admission: Maik Adler Condition: Stable
[2024-07-07 08:20] VITALS: BP 125/86; PULSE 64; RESP 18; TEMP 36.5; O2SAT 100
--- NOTE | 2024-07-07 09:30 | PC.NURSE ---
Met with mother to attempt to latch baby to the left breast. He has only been nursing on the right breast so far. Her right areola is reddened and she has some soreness and latch on tenderness. Baby was just circumcised this morning and is very sleepy and hard to awaken. It took us 10 minutes to get him to wake enough to latch. Since he was so sleepy we were unable to get a latch on the left but he did feed for a few minutes on the right. Mom was leaking milk prior to latching. Mom has very large breasts and short nipples. Her areola tends to wrinkle when we make a bite for baby. Mother shown how to make her hand a U to compress the breast parallel to baby's mouth. Also discussed use of a washcloth under the breast to help support and lift the breast. Father present and very supportive. We will attempt again in about an hour or anytime baby shows feeding cues. Mom agrees to call out when ready. RN updated.
[2024-07-07] MEDS: POLYSACCHARIDE IRON COMPLEX 150 MG CAPSULE PO (09:54)
[2024-07-07] MEDS: DOCUSATE SODIUM 100 MG CAPSULE PO (09:54)
[2024-07-07] MEDS: MULTIVIT/MIN/PREN/FOL AC/IRON TABLET 1 TAB PO (09:54)
--- NOTE | 2024-07-07 11:30 | PC.NURSE ---
Consulted with mother concerning needs and she shared her ability to independently latch infant. She has some latch on tenderness that dissipates. Mother is feeding appropriately for growth of and understands stimulating to eat if needed. Observed and assisted mother to latch baby to the left breast in cradle hold. He is able to latch well with a small 'bite'. Reviewed with mom that it will take practice for her and baby to get the hang of latching on the more challenging side but that with consistency they will get it. Infant has had appropriate feedings in the last 24 hours meets the outcomes for weight, output, blood sugar and jaundice at this time. Reinforced understanding of milk production, transition of milk, signs of adequate intake, transition of stool, prevention/relief of engorgement, plugged ducts, mastitis, responsive watching for feeding cues, the different methods of stimulating infant to breastfeed 1-3 hours after the start of the last feeding, community resources ([facility] referral faxed to [facility]), and when to call a provider using the resource of the feeding sheet along with the mom and baby guide. Patient has a Mom Cozy breast pump and we briefly reviewed how to use and when to use (if not latching to left breast). Mother voiced understanding of the information shared, is confident to continue effectively her infant at home, when to call for assistance, denies any additional assistance or education at this time. Reported to the Primary RN.
[2024-07-08 08:34] LABS: Reference Lab Test Name RPR TITER
[2024-07-08 08:36] LABS: Reference Lab Test Name Treponemal IgG/IgM
[2024-07-09 11:25] VITALS: BP 120/91; PULSE 98; RESP 18; TEMP 36.8; O2SAT 99
== END 2024-07-07 15:30 | disposition home or self-care (01) | DRG 560 ==
LOC: ANHOB2 07-07 08:19 → ANHLDR 07-08 10:48
PROVIDERS: Admitting Provider Obstetrics & Gynecology; Visit Provider Obstetrics & Gynecology
DX: O32.6XX0 Maternal care for compound presentation, not applicable or unspecified (principal); O71.82 Other specified trauma to perineum and vulva; O98.12 Syphilis complicating childbirth; A53.9 Syphilis, unspecified; O69.81X0 Labor and delivery complicated by cord around neck, without compression, not applicable or unspecified; Z3A.38 38 weeks gestation of pregnancy; Z37.0 Single live birth
CPT/HCPCS: 36415; 85014; 85018; 85025; 86593; 86703; 86780; 86850; 86900; 86901; A9270; G0432; J0561; J2371; J2405; J2590; J2795; J7120

== ENCOUNTER 2024-09-10 09:57 | Outpatient (CLI) | payer OTHER, SELFPAY ==
--- NOTE | 2024-09-10 10:00 | PC.NURSE ---
In- 1000 Out- 1100 Reason for visit: decreased milk supply History: Tara had her first baby via vaginal delivery on 07/05/24. There were no complications. She has been exclusively since delivery. She does pump regularly and has given bottles of expressed milk in the past but is currently only feeding at breast. While discussing her routine, she explains that she had stopped during the middle of the night and would give a bottle instead. A member of her family who has a lot of experience told her that she should resume night feeding to increase her supply. She says that this did make a noticeable difference. She tries to get plenty of fluids and protein. She has great support from family and significant other. She will be returning to work soon and wants to be sure she has plenty of milk for baby while they are apart. She states that she was an overproducer initially and was pumping 15oz at each session. She is now pumping 3-7oz per session after she has breastfed for 20 minutes. Encouraged mom that this is a great volume and that she definitely doesn't have low milk production. It just seemed to her that there was an alarming decrease in the volume she was pumping. She does admit that she gets caught up with watching videos on social media and compares her experience with what other people are doing. Patient is supported and commended that she is doing such an awesome job and that baby is getting plenty of breast milk at each feeding. She was uncertain how much baby would need to take from the bottle at each feeding when they are apart and the weighted feed has given her a good idea of how much baby will need. History: Daniel is a healthy and robust 2 month old. He is alert and bright eyed. He and mom appear to have a very close leyva and respond well to each other. He had an appointment with his teacher kindergarten last week and there were no concerns. He sleeps for about 2 hours between feedings, wakes when he is hungry, and is able to end the feeding independently when sated. Observations:Mom positions baby in a cross cradle hold on the right, which she states is his preferred side. She uses football on the left side. Daniel latches and feeds without difficulty. Mom hears occasional smacking at the breast but it resolves when she adjusts for a deeper latch. Mom declines nipple pain. She has occasional 'aching' on the outer portion of the right breast and was worried there may be a plugged duct. Area was palpated and found to be soft and free from any lumps. There are no hard or red areas. She denies pain with palpation. She is encouraged to use heat and gentle massage to the area for discomfort. Baby was a great nurser and was satisfied after feeding. Mom applied her pump after feeding so that we could observe her flange fit. She measures at a 16mm nipple diameter and per the [place] guidelines, it is recommended she use a 19mm flange. A set of 19mm flanges was provided to her (extra sizes from [employer] at no cost). She will try this size and/or the 21mm that comes in her pump kit. She is advised to use whatever feels and works best for her. She does say that her areola is red and puffy after pumping due to it being pulled into the flange. weight: 6 lb 10 oz Lowest weight: 6 lb 4 oz Last weight: 11 lb 4 oz (at teacher kindergarten last week) Pre-feed weight: 5360g Post-feed weight: 5447g Transferred volume: 87ml Plan of Care: Tara and Daniel are a great nursing pair. They can continue feeding on demand as they have been. Mom feels better knowing that baby ate about 3 oz at the breast and that when she pumps after feedings, she is getting an appropriate, expected amount. Mom wants to continue to stock up on pumped milk because she will be returning to work soon. She will try the smaller size flange to see if she has an increase in the volume she pumps. Handout on low supply/increasing supply given. She was provided with tips on pumping at work. She is encouraged to reach out to the office for any other questions or concerns. Follow up plans: The team will follow up with Tara on Sunday via phone. A copy of the consultation note will be faxed to Dr. Holt's office for their records.
--- OUTSIDE RECORDS SUMMARY | 2024-09-10 11:14 | XMS_ITS | Data Portability ---
Author Organization [facility] [place] Address [address] [place] [address] [place] [address] Assessment Encounter Date Assessment Date Assessment LastModified by Organization Details LastModified Time 06/17/2024 06/17/2024 Patient is _35__weeks . Discussed plan. Not available 06/17/2024 09:50:57 07/02/2024 07/02/2024 Patient is _38__weeks . Discussed plan. Not available 07/02/2024 18:00:17 Plan of Treatment Reminders Order Date Submit Date Provider Last Modified By Organization Details Last Modified Time Details Appointments [facility] 2024 10:45A M ELISABETH HART MD Not available Not available Not available Lab streptoco ccus group B, culture, unspecifi ed specimen 2024 025 [facility] (Lab), [address], [place], [address], 06/20/2024 15:13:14 Referral None recorded. Procedures None recorded. Surgeries None recorded. Imaging US, obstetric , follow-up 2024 025 [email or web address] [place], [address], [address], , [address], 06/26/2024 16:03:42 Medication Orders None recorded. Patient TargetsNo targets recorded. Patient InstructionsNo instructions recorded. Reason for Referral None Reported. Results Created Date Observation Date Name Description Value Unit Range Abnormal Flag Note LastModifiedBy Organization Detail LastModifiedTime 06/18/1906/1706/17/2024 CULTU RE: GROUP B STREP SCREE N, [...] t Abnor mal: No Resul ting Lab: [facility] [address] [facility] [address] Tel: CULTU RE ----- ----- ----- --- No Group B strep isola sumi at 2 days (jorge ctive broth enhan cemen t) Not Available [facility] (Lab) [address], [place], [address], 06/20/2024 15:13:14 05/27/19 25 05/26/2024 US, obste tric, follo w-up No observ ation record ed. [email or web address] [place] [address] [facility], , [address], 05/26/2024 17:23:17 05/27/19 25 05/26/2024 US, obste tric, follo w-up No observ ation record ed. [email or web address] [address], [place], [address], 05/26/2024 21:46:35 06/26/19 25 06/25/2024 US, obste tric, follo w-up No observ ation record ed. [email or web address] [place] [address], , [address], 06/25/2024 18:29:29 06/26/19 25 06/25/2024 US, obste tric, follo w-up No observ ation record ed. [address], [place], [address], 06/26/2024 16:32:54 Result Notes None recorded. Problems Name Problem SNOMED Code Status Onset Date Resolution Date Notes Provider Name and Address Organization Details Recorded Time Pregnanc y 11462340 Completed 202307/21/2024 Afsaneh lópez [facility] 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 Informat ion sent [facility] [place] [facility] 1st injectio n 01/22/24 Shari Porfirio lópez [facility] 17:20:57 Problem Notes None recorded. Procedures Surgical History Date Name Laterality Status Provider Name and Address Organization Details Recorded Time 10/24/2022 Date of Last Pap Smear completed Lissy Salcido [facility] 01/30/2024 15:08:31 Imaging Results None recorded. Procedure Notes None recorded. Medical Equipment None [...] Available Not Available Vitals Date Recorded Body weight Body mass index (BMI) Body height Systolic blood pressure Diastolic blood pressure Provider Name and Address Organization Details Last Updated DateTime 06/17/2024 01502.88 163 g 31.2 kg/m2 170.18 cm 114 mm[Hg] 76 mm[Hg] Afsaneh Waters [facility] 09:41:25 Date Recorded Body height Body mass index (BMI) Body weight Systolic blood pressure Diastolic blood pressure Provider Name and Address Organization Details Last Updated DateTime 06/25/2024 170.18 cm 31.6 kg/m2 49427.66 g 114 mm[Hg] 75 mm[Hg] JUAN J Valerio [facility] 5 16:24:25 Date Recorded Body height Body mass index (BMI) Body weight Systolic blood pressure Diastolic blood pressure Provider Name and Address Organization Details Last Updated DateTime 07/02/2024 170.18 cm 32.1 kg/m2 94413.44 g 113 mm[Hg] 74 mm[Hg] Afsaneh Waters [facility] 5 17:37:21 Date Recorded Body height Body mass index (BMI) Body weight Systolic blood pressure Diastolic blood pressure Provider Name and Address Organization Details Last Updated DateTime 08/08/2024 170.18 cm 29 kg/m2 59902.59 g 114 mm[Hg] 80 mm[Hg] Afsaneh Waters [facility] 5 12:08:04 Social History Question Answer Notes LastModified by Organizat ion Details LastModified Time Tobacco Smoking Status Never Smoker Afsaneh Waters [facility] 01/04/2024 15:18:12 Do You Have An Advance Directive? No [email or web address] Information n ot available 06/17/2024 If You Are , What Was Your Level Of Alcohol Consumption Prior To ? Occasional [email or web address] Information not available 01/04/2024 How Many Years Have You Consumed Alcohol? 5 [email or web address] Information not available 01/04/2024 Are You Blind Or Do You Have Difficulty Seeing? No [email or web address] Information n ot available 12/19/2023 What Is Your Level Of Caffeine Consumption? None [email or web address] Information not available 07/02/2024 How Much Tobacco Do You Chew? None Information not available 12/19/2023 In The 14 Days Before Symptom Onset, Have You Had Close Contact With A Laboratory-confirm ed COVID-19 While That Case Was Ill? No Information n ot available 12/19/2023 In The 14 Days Before Symptom Onset, Have You Had Close Contact With A Person Who Is Under Investigation For COVID-19 While That Person Was Ill? No [email or web address] Information not available 12/19/2023 Have You Been To An Area Known To Be High Risk For COVID-19? No [email or web address] Information not available 12/19/2023 Are You Deaf Or Do You Have Serious Difficulty Hearing? No [email or web address] Information not available 12/19/2023 What Type Of Diet Are You Following? REGULAR [email or web address] Information n ot available 12/19/2023 What Is The Highest Grade Or Level Of School You Have Completed Or The Highest Degree You Have Received? [id number] [email or web address] Information not available 07/02/2024 Are There Any Guns Present In Your Home? No Information not available 12/19/2023 Do You Use Protection During Sex? Usually [email or web address] Information not available 08/08/2024 Do You Use Your Seat Belt Or Car Seat Routinely? Yes [email or web address] Information not available 12/19/2023 Do You Have Smoke And Carbon Monoxide Detectors In Your Home? No [email or web address] Information not available 12/19/2023 How Much Tobacco Do You Smoke? No [email or web address] Information not available 12/19/2023 Do You Use Sunscreen Routinely? No [email or web address] Information not available 12/19/2023 Has Tobacco Cessation Counseling Been Provided? No [email or web address] Information not available 01/04/2024 Have You Used IV Drugs? No [email or web address] Information not available 12/19/2023 Do You Have Difficulty Walking Or Climbing Stairs? No [email or web address] Information not available 01/04/2024 Sex: Unknown Functional Status Question Answer Note LastModified by Organizat ion Details LastModified Time Do you use any illicit or recreational drugs? No [email or web address] Information not available 12/19/2023 Do you or have you ever used any other forms of tobacco or nicotine? No Information not available 01/04/2024 What is your level of alcohol consumption? None [email or web address] Information not available 12/19/2023 Are you able to walk? YESWOREST Information not available 04/02/2024 Are you able to care for yourself? 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 No Information not available 01/04/2024 What is your exercise level? Occasional [email or web address] Information not available 01/30/2024 Mental Status Question Answer Note LastModified by Organization D etails LastModified Time Do you feel stressed (tense, restless, nervous, or anxious, or unable to sleep at night)? [id number] [email or web address] Information not available 12/19/2023 Family History Relationship Description Onset Age of this Age Resolved Age Notes LastModified by Organization Details LastModified Time Unspecified Relation Family history unknown Not available 2023 12:19:10 Medical History Condition [...] of Flow (days) 5 Current Control Method None Date of Last Colonoscopy Frequency of Cycle (Q days) 28 Sexually Active? Y BCPs Date of DEXA bone scan Age of first menstrual cycle 14 Date of Last Pap Smear 10/24/2022 Sexual Problems? N Desired Control Method LMP Unknown N Obstetrics History GPAL:G 1 P 1 0 0 1 Type Value Full Term 1 Living 1 Total 1 Past Encounters Encounter ID Performer Location Encounter Start Date Encounter Closed Date Diagnosis/Indication Diagnosis SNOMED-CT Code Diagnosis ICD10 Code Diagnosis Note [id number] ELISABETH HART MD [place] [address],[place] [address] 12/19/2023 11:41:32 12/19/2023 12:24:38 [id number] ELISABETH HART MD [place] [address],[place] [address] 12/19/2023 11:48:31 12/19/2023 15:00:12 Nausea and vomiting 99915193 R11.2 - will trial zofran PRN test positive 289959766 Z32.01 1. Exam today within normal limits.2. Ultrasound today confirms GA and viability. EDC . GC/Clamydi a testing done: will f/u as indicated. 4. ACOG guidelines and plan of care for reviewed with patient. All questions answered.5 . Return to office at 12 weeks for new OB visit6. Will need new OB labs at next visit.7. Genetic screening: desires. 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 - s/p PCN x2, next appointmen t 02/04 Gestation period, 16 weeks 91622758 Z3A.16 [id number] Benji Benson MD [place] [address],[place] [address] 02/26/2024 14:45:12 02/26/2024 16:21:46 screening for malformation 226225180 Z36.3 Z3A.19 [id number] ELISABETH HART MD [place] [address],[place] [address] 02/26/2024 14:46:52 02/26/2024 16:47:33 Excessive growth affecting management of mother 47818450 O36.60X0 - 93% at 20 weeks- repeat at 24 weeks Gestation period, 19 weeks 04512112 Z3A.19 - continue PNV Latent syphilis 56414409 0 A53.0 - s/p PCN x3, repeat with GCT [id number] Benji Benson MD [place] [address],[place] [address] 04/28/2024 11:20:59 04/28/2024 12:12:44 Pre-existing maternal disease complicating 7781941405 6106 O99.891 Z3A.28 [id number] ELISABETH HART MD [place] [address],[place] [address] 04/02/2024 13:55:06 04/09/2024 03:22:23 Latent syphilis 844217004 A53.0 - s/p PCN x3, repeat with GCT Gestation period, 25 weeks 06170904 Z3A.25 - continue PNV [id number] ELISABETH HART MD [place] [address],[place] [address] 04/28/2024 11:29:08 04/28/2024 12:42:04 Venereal disease screening 300706567 Z11.3 - partner seropositi ve for HSV1 after questionab le lesion vs folliculit is- discussed no indication for blood testing for HSV, patient to call if lesions present Latent syphilis 04041651 0 A53.0 - s/p PCN x3- RPR titer 1:64 down to 1:32 at 24 week visit Transverse lie 02602351 O32.2XX9 - repeat at 32 weeks Gestation period, 28 weeks 40346453 Z3A.28 - continue PNV [id number] ELISABETH HART MD [place] [address],[place] [address] 05/12/2024 09:57:52 05/12/2024 14:23:13 Latent syphilis 811445492 A53.0 - s/p PCN x3- RPR titer 1:64 down to 1:32 at 24 week visit further downtrend to 1:16 at 28 week visit Transverse lie 94012046 O32.2XX9 - repeat at 32 weeks Gestation period, 30 weeks 91480252 Z3A.30 - continue PNV [id number] Benji Benson MD [place] [address],[place] [address] 05/26/2024 11:28:56 05/26/2024 12:16:10 Malpresentation of fetus 34523818 O32.9XX0 Z3A.32 [id number] ELISABETH HART MD [place] [address],[place] [address] 05/26/2024 11:29:19 05/26/2024 12:45:19 Latent syphilis 431448588 A53.0 - s/p PCN x3- RPR titer 1:64 down to 1:32 at 24 week visit further downtrend to 1:16 at 28 week visit Gestation period, 32 weeks 3309813 Z3A.32 - continue PNV- discussed preadmissi on [id number] [facility] [address],[place] [address] 06/17/2024 09:35:57 06/17/2024 10:00:21 screening 148468197 Z36.85 Gestation period, 35 weeks 60692461 Z3A.35 continue vitamin [id number] ELISABETH HART MD [place] [address] [place] [address] 06/25/2024 15:32:20 06/25/2024 16:23:57 Pre-existing maternal disease complicating 9232967585 6106 O99.891 Z03.74 Z3A.37 [id number] ELISABETH HART MD [place] [address],[place] [address] 06/25/2024 15:33:29 06/25/2024 17:09:28 Latent syphilis 074395393 A53.0 - s/p PCN x3- RPR titer 1:64 down to 1:32 at 24 week visit further downtrend to 1:16 at 28 week visit Gestation period, 37 weeks 79167965 Z3A.37 [id number] Ne Martin [facility] [address] [address] 07/02/2024 16:56:53 07/03/2024 06:53:07 [id number] [facility] [address],[facility] [place] [address] 08/08/2024 11:49:10 08/08/2024 12:36:10 state 20366467 Z39.2 f/u wwe 6 mo Health Concerns Section Related Observation LastModified by Organization Detai ls LastModified Time None Recorded Concern Status LastModified by Organization Details LastModified Time None Recorded Advance Directives Directive N: Payers Insurance Date Sequence Insurance Name Policy Number Policy Cohn Covered Member ID Cohn Member ID Guarantor Name 05/11/2024 1 [place] [facility] DEPARTMENT OF PUBLIC AID [id number] Tara Michel [id number] Tara Michel 05/11/2024 2 [place] [facility] PUBLIC AID [id number] Tara Michel [id number] Tara Michel 06/24/2024 2 [facility] ON OR AFTER 09/23/20 (MEDICAID REPLACEMENT - HMO) Tara Michel [id number] Tara Michel 05/23/2024 PAYMENT PLAN Tara Michel 08/11/2024 1 [facility] ON OR AFTER 09/23/20 (MEDICAID REPLACEMENT - HMO) Tara Michel [id number] Tara Michel 05/11/2024 2 [facility] - DOS ON OR AFTER 20 (MEDICAID REPLACEMENT - HMO) [id number] Tara Michel [id number] Tara Michel 05/11/2024 2 [facility] PRIOR TO 09/23/2020 (MEDICAID REPLACEMENT - HMO) Tara Michel [id number] Tara Michel 05/11/2024 2 [facility] (MEDICAID REPLACEMENT - HMO) Tara Michel [id number] Tara Michel 05/12/2024 2 [facility] PRIOR TO 09/23/2020 (MEDICAID REPLACEMENT - HMO) Tara Michel [id number] Tara Michel 06/25/2024 2 [facility] PRIOR TO 09/23/2020 (MEDICAID REPLACEMENT - HMO) Tara Michel [id number] Tara Michel 06/04/2024 PAYMENT PLAN Tara Michel 08/06/2024 2 [facility] ON OR AFTER 09/23/20 (MEDICAID REPLACEMENT - HMO) Tara Michel [id number] Tara Michel 06/08/2024 2 [facility] ON OR AFTER 09/23/20 (MEDICAID REPLACEMENT - HMO) Tara Michel [id number] Tara Michel 06/04/2024 PAYMENT PLAN Tara Michel 07/01/2024 2 [facility] PRIOR TO 09/23/2020 (MEDICAID REPLACEMENT - HMO) Tara Michel [id number] Tara Michel 08/06/2024 2 [facility] PRIOR TO 09/23/2020 (MEDICAID REPLACEMENT - HMO) Tara Michel [id number] Tara Michel 05/11/2024 1 [place] [facility] DEPARTMENT OF PUBLIC AID Tara Michel [id number] Tara Michel 06/10/2024 2 [facility] PRIOR TO 09/23/2020 (MEDICAID REPLACEMENT - HMO) Tara Michel [id number] Tara Michel 05/11/2024 1 [facility] [id number] Tara Michel [id number] Tara Michel Notes Date Note Type Note Provider Name and Address Organization Details Recorded Time 08/08/2024 text/html VisitReported bypatient.Quality:N Context:complicatio ns of : none; complications of labor: none; complications: none; feeding choice: breast; good support from partner/family; resumed menstrual bleeding no Associated Symptoms:no abnormal bleeding; no vaginal discharge; no pelvic pain; laceration well healed; no constipation; no fecal incontinence; no dysuria; no urinary incontinence; no fever; no problems; no mastitis; normal mood Contraception Plan:declines contraceptionNotes: doing well! Ne Martin, TEE [address], , [address], [place] [facility] 08/08/2024 12:28:04 OBGyn Episode Ob Episode Information Episode Created Date Number of Fetuses Patient Bloodtype Patient rh Status Prepregnancy Weight lbs Domestic Partner Domestic Partner Phone Father Name Chairman & Chief Executive Officer Status 01/04/20 24 1 O Positive Daniel Morfin CLOSED Fetus Data First Name Last Name Admitted to NICU Weight (g) Sex Living Outcome Pediatric Complications Fetus ID Race Codes Race Delivery Type 2976.69 75 M true Full Term +RPR / L arm presentation [id number] Vaginal Delivery Problems Problem Notes Problem Name Start Date End Date Resolution Snomed Code Not e Latent syphilis 01/11/2024 [id number] RPR 1:64 titer decreased to 1:16 titer at 28 weeks; 3rd injection 02/04. Information [facility] 1st injection 01/22/24 Maximino Calculation Initial Maximino Date Initial Exam [...] Ultra Sound Latest Days Gestation 0 0 Pre-wing Flowsheet Flowsheet Date 01/04/2024 [place] Score Blood Edema Fundus Height Fundus Units Glucose Ketones Leukocytes Nitrite Labor Signs Protein Cervic Dilation Cervic Effacement Cervic Station neg none none trace Type Weight in lbs Pre/Post Dialysis Refused Weight 173.811692154141 BP Diastolic BP Location Tested BP Systolic [...] Type Weight in lbs Pre/Post Dialysis Refused 170.548801118420 BP Diastolic BP Location Tested BP Systolic [...] Weight in lbs Pre/Post Dialysis Refused Weight 174.991953147977 BP Diastolic BP Location Tested BP Systolic [...] Weight in lbs Pre/Post Dialysis Refused Weight 184.122899709191 BP Diastolic BP Location Tested BP Systolic [...] Weight in lbs Pre/Post Dialysis Refused Weight 184.006356039687 BP Diastolic BP Location Tested BP Systolic [...] Type Weight in lbs Pre/Post Dialysis Refused 190.348641667475 BP Diastolic BP Location Tested BP Systolic [...] Weight in lbs Pre/Post Dialysis Refused Weight 192.184635249139 BP Diastolic BP Location Tested BP Systolic BP Type 79 L arm 118 sitting Fetus Heart Rate Present A Present Fetus Movement A Yes Comments Patient c/o Gianfranco Garza an d slight swelling in feet. [...] Type Weight in lbs Pre/Post Dialysis Refused 199.010310707115 BP Diastolic BP Location Tested BP Systolic [...] Weight in lbs Pre/Post Dialysis Refused Weight 202.248601635220 BP Diastolic BP Location Tested BP Systolic [...] Weight in lbs Pre/Post Dialysis Refused Weight 205.821911374282 BP Diastolic BP Location Tested BP Systolic [...] Post Complications Tubal Sterilization Discharge Date Comments 5 38.3 10.3 Bee +RPR Discharge Information Feeding Method Contraceptive Method Maternal HG B and HCT Levels
--- OUTSIDE RECORDS SUMMARY | 2024-09-10 11:14 | XMS_ITS | Clinical Summary ---
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'S Swim Coach Name Role Phone Audi Mckeon MD Primary Care Provider Allergies No known active allergies Medications No known medications Active Problems No known active problems Encounters Date Type Department Care Team Description 07/05/2024 12:26 PM CDT - 07/05/2024 11:59 [place] [address] Discharge Disposition: Discharge to home or self care from Last 3 Months Family History Medical History Relation Name Comments [...] on file Legal Sex Female 1:50 PM DECALER Gender Identity Not on file Sexual Orientation [...] first BP Pulse 50 03/01/2012 10:46 AM DECALER Temperature - - Respiratory Rate - - Oxygen Saturation 99% 03/01/2012 10: 46 AM DECALER Inhaled Oxygen Concentration - - Weight 78.9 kg (174 lb) 01/10/2022 1:45 PM CDT Height 170.2 cm (5' 7) 01/10/2022 1:45 PM CDT Body Mass Index 27.25 01/10/2022 1:45 PM CDT Plan of Treatment Health Maintenance Due Date Last Done Comments Hepatitis C Screening 1997 DTaP/Tdap/Td Vaccine (7 - Td or Tdap) 11/18/2018 11/18/2008, 07/29/2002, 01/03/1999, Additional history exists Cervical Cancer Screening 01/10/2023 01/10/2022 Depression Screening 01/10/2023 01/10/2022 Regular Well Visit/Exam 18-64 01/10/2023 01/10/2022 Covid-19 Vaccine (3 2023-2 5 season) 2023 09/02/2020, 08/12/2020 Influenza Vaccine (Season Ended) 2024 Hepatitis B Screening Completed 08/10/1998 , 02/25/1998, 1997, Additional history exists Pneumococcal vaccine <65 Completed 04/19/2000 Varicella Vaccines Completed 10/24/2007, 08/10/1998 HPV Vaccines Completed 09/02/2014, 12/18/2011 Procedures Procedure Name Priority Date/Time Associated Diagnosis Comments TREPONEMAL IGG/IGM STAT 07/05/2024 12 :26 AM CDT RPR TITER STAT 07/05/2024 12:26 AM CDT TREPONEMAL IGG/IGM STAT 07/05/2024 12 :26 AM CDT RPR STAT 07/05/2024 12:26 AM CDT PAP WITH REFLEX TO HIGH RISK HPV Routine 01/10/2022 2:54 PM CDT Screening for STD (sexually transmitted disease) Well woman exam from Last 3 Months or Most Recently Relevant to Health Maintenance Results * (ABNORMAL) Treponemal IgG/IgM Blood (07/05/2024 12:26 AM CDT) Treponemal IgG/IgM Reactive( A) Nonreactive Comment: Interpretive Data: If test is reported as EQUIVOCAL, a new sample should be drawn in two weeks for testing. Current interpretive data was last revised on 2018. Blood 07/05/2024 12:2 6 AM CDT 07/05/2024 8:01 AM CDT us Notinfile Unknown LAB MICROBIOLOGY - GENERAL ORD ERABLES Final Result [facility] Department [place] [address] * (ABNORMAL) Treponemal IgG/IgM Blood (07/05/2024 12:26 AM CDT) Treponemal IgG/IgM Reactive( A) Nonreactive Comment: Interpretive Data: If test is reported as EQUIVOCAL, a new sample should be drawn in two weeks for testing. Current interpretive data was last revised on 2018. Blood 07/05/2024 12:2 6 AM CDT 07/05/2024 8:01 AM CDT us Notinfile Unknown LAB MICROBIOLOGY - GENERAL ORD ERABLES Final Result Performing Organization Address [facility] Co de Phone Number [facility] [place] [address] * (ABNORMAL) RPR Titer Blood (07/05/2024 12:26 AM CDT) Pathologist [facility] RPR qn 1:16(A) Nonreactive Blood 07/05/2024 12:2 6 AM CDT 07/05/2024 8:01 AM CDT us Notinfile Unknown LAB MICROBIOLOGY - GENERAL ORD ERABLES Final Result Performing Organization Address [facility] Co de Phone Number [facility] [place] [address] * (ABNORMAL) RPR Blood (07/05/2024 12:26 AM CDT) Pathologist [facility] RPR Reactive(A ) Nonreactive Blood 07/05/2024 12:2 6 AM CDT 07/05/2024 8:01 AM CDT us Notinfile Unknown LAB MICROBIOLOGY - GENERAL ORD ERABLES Final Result Performing Organization Address [facility] de Phone Number [facility] Department [place] [address] * Pap with reflex to High Risk HPV (01/10/2022 2:54 PM CDT) [facility] CLINICAL INFORMATION: [facility] Comment:None given LMP [facility] Comment:A Previous Pap [facility] Comment:NONE GIVEN Prev. Bx [facility] Comment:NONE GIVEN SOURCE: [facility] Comment:Cervix, Endocervix Pap, specimen adequacy [facility] Comment: Satisfactory for evaluation. Endocervical/transformation zone component present. Age and/or menstrual status not provided HPV interp [facility] Comment:Negative for intraep ithelial lesion or malignancy. COMMENTS [facility] Aldo Comment: This Pap test has been evaluated with computer assisted technology. Basket Hand Weaver Anish Velez Comment: MEF, CT(ASCP) CT screening location: [place] [address] [address] [address] Comment Marie Carlson Comment: EXPLANATORY NOTE: The [...] 01/11/2022 8:35 AM CDT us Sumi Guzman COMMODITY LEAD LAB CYTOLOGY ORDERABLES Fin al Result [place] [address] [place] [phone] from Last 3 Months or Most Recently Relevant to Health Maintenance Care Teams Men'S Swim Coach Relationship Specialty Start Date End Date Audi Mckeon MD [address] [place] [id number] PCP - General 05/12/16
--- OUTSIDE RECORDS SUMMARY | 2024-09-10 11:14 | XMS_ITS | Referral Summary ---
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 Role Phone Audi Mckeon MD Primary Care Provider Encounters Date Type Department Care Team Description 07/05/2024 12:26 PM CDT - 07/05/2024 11:59 PM CDT Hospital Encounter [address] [address] Discharge Disposition: Discharge to home or self care from Last 3 Months Allergies No known active allergies Medications No [...] on file Legal Sex Female 1:50 PM TIMBER HAND Gender Identity Not on file Sexual Orientation Not on file Last Filed Vital Signs Vital Sign Reading Time Taken Comments Blood Pressure 120/86 01/10/2022 2:00 PM CDT patient states she was nervous during first BP Pulse 50 03/01/2012 10:46 AM TIMBER HAND Temperature - - Respiratory Rate - - Oxygen Saturation 99% 03/01/2012 10: 46 AM TIMBER HAND Inhaled Oxygen Concentration - - Weight 78.9 [...] ORD ERABLES Final Result Performing Organization Address [facility] Co de Phone Number [facility] [place] [address] * (ABNORMAL) Treponemal IgG/IgM Blood (07/05/2024 12:26 [...] ORD ERABLES Final Result Performing Organization Address [facility] Co de Phone Number [facility] [place] [address] * (ABNORMAL) RPR Titer Blood (07/05/2024 12:26 AM CDT) RPR qn 1:16(A) Nonreactive Blood 07/05/2024 12:2 6 AM CDT 07/05/2024 8:01 AM CDT us Notinfile Unknown LAB MICROBIOLOGY - GENERAL ORD ERABLES Final Result Performing Organization Address [facility] Co de Phone Number [facility] [place] [address] * (ABNORMAL) RPR Blood (07/05/2024 12:26 AM CDT) RPR Reactive(A ) Nonreactive Blood 07/05/2024 12:2 6 AM CDT 07/05/2024 8:01 AM CDT us Notinfile Unknown LAB MICROBIOLOGY - GENERAL ORD ERABLES Final Result AR[facility]ENIO [facility] Department [place] [address] * Pap with reflex to High Risk [...] has been evaluated with computer assisted technology. Manager Body [facility] st Ernesto Carlson Comment: MEF, CT(ASCP) CT screening location: [place] [address] [place] [address] Comment Marie Carlson Comment: EXPLANATORY NOTE: The [...] 01/11/2022 8:35 AM CDT us Sumi Guzman RESTAURANT CREW LAB CYTOLOGY ORDERABLES Fin al Result Performing Organization Address [facility]/ZIP Co de Phone Number [facility] [address] [address] [phone] from Last 3 Months or Most Recently Relevant to Health Maintenance Care Teams Dairy Truck Driver Relationship Specialty Start Date End Date Audi Mckeon MD [address] [place] [address] PCP - General 05/12/16
--- OUTSIDE RECORDS SUMMARY | 2024-09-10 11:14 | XMS_ITS | Clinical Summary ---
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
--- OUTSIDE RECORDS SUMMARY | 2024-09-10 11:14 | XMS_ITS | Clinical Summary ---
Author Organization [facility] [employer] Address [address] 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 This disclosure is being madepursuant to the Care Everywhere program and may not contain all information available regarding this patient. Last updated 17.[employer] Allergies No known active allergies Medications * Be aware that medications may not be up to date on this document. Alwaysverify current medications with the patient. methylPREDNISol one (MEDROL DOSEPAK) 4 MG tablet Take by mouth as directed 1 Each 05/27/2017 Active Immunizations Immunization Administration Dates Next Due MENINGOCOCCAL ACWY (MCV4P) VAC IM 11/19/2017 Social History Tobacco Use Types Packs/Day Years Used Date Smoking Tobacco: Never Comments No Sex and Gender Information Value Date Recorded Sex Assigned at Not on file Legal Sex Female 2:19 PM BUSINESS TAXES SPECIALIST Gender Identity Not on file Sexual Orientation Not on file Last Filed Vital Signs Vital Sign Reading Time Taken Comments Blood Pressure 122/72 05/27/2017 3:28 PM BUSINESS TAXES SPECIALIST Pulse 51 05/27/2017 3:28 PM BUSINESS TAXES SPECIALIST Temperature 36.7 C (98.1 F) 05/27/2017 3:28 PM BUSINESS TAXES SPECIALIST Respiratory Rate - - Oxygen Saturation 96% 05/27/2017 3:28 PM BUSINESS TAXES SPECIALIST Inhaled Oxygen Concentration - - Weight 77.1 kg (170 lb) 05/27/2017 3:28 PM BUSINESS TAXES SPECIALIST Height 170.2 cm (5' 7) 05/27/2017 3:28 PM BUSINESS TAXES SPECIALIST Body Mass Index 26.63 05/27/2017 3:28 PM BUSINESS TAXES SPECIALIST Plan of Treatment Health Maintenance Due Date Last Done Comments HIV SCREENING 2012 HEPATITIS C SCREENING 07/31/2015 DTAP/TDAP/TD VACCINES [...] on patient's age to complete this topic HPV VACCINE Aged Out No longer eligi ble based on patient's age to complete this topic MENINGOCOCCAL (Group B) VACC INE SHARED DECISION-MAKING Aged Out No longer eligibl e based on patient's age to complete this topic PNEUMOCOCCAL VACCINE Aged Out No long er eligible based on patient's age to complete this topic Insurance [employer]
== END 2024-09-10 09:58 | disposition home or self-care (01) ==
LOC: ANHOBOP 09:58
PROVIDERS: Visit Provider Student in an Organized Health Care Education/Training Program
DX: Z39.1 Encounter for care and examination of lactating mother (principal)
CPT/HCPCS: 99202; G0463